=== PATIENT | male | born 1960 | race Caucasian/White ===

== ENCOUNTER 2018-10-04 12:37 | Inpatient (IN) | payer MEDICAID, OTHER ==
[~2018-10-04] VITALS: Ht 180.3 cm; Wt 66.8 kg
[2018-10-04 12:52] LABS: BASOPHILS % (AUTO) 0.3 % (0.0-2.0); EOSINOPHILS % (AUTO) 0.2 % (0.0-6.0); HEMATOCRIT 36 % (39-51); LYMPHOCYTES # (AUTO) 3.2 /CMM (0.8-4.8); LYMPHOCYTES % (AUTO) 34.2 % (20.0-44.0); MEAN CORPUSCULAR HGB CONC 33 g/dl (31.0-36.0); MEAN CORPUSCULAR VOLUME 88 fL (80-96); MONOCYTES # (AUTO) 1.5 /CMM (0.1-1.30); NEUTROPHILS # (AUTO) 4.6 /CMM (1.8-8.9); NEUTROPHILS % (AUTO) 49.3 % (43.0-81.0); PLATELET COUNT (AUTO) 95 /CMM (150-450); RED BLOOD CELL COUNT(AUTO) 4.11 MIL/uL (4.5-6.0); WHITE BLOOD COUNT (AUTO) 9.3 K/uL (4.3-11.0)
--- NOTE | 2018-10-04 12:52 | NUR ---
BIB [facility], FROM A HOTEL D/T ETOH, TAKES HEROIN, ALCOHOLIC, FOUND BEER BOTTLE ON SITE. STATES HE FELL OUT OF BED, BUT DOESN'T REMEMBER WHAT HAPPENED. PT IS AOX4, AMB, VSS, RR EVEN AND UNLABORED. HAS BRUISING ON HIS LEFT BIG TOE AND SECOND TOE R/T THE FALL. NO ACUTE DISTRESS NOTED, NO OTHER COMPLAINTS AT THIS TIME. READY FOR EVAL.
[2018-10-04 13:00] LABS: CALCIUM, SERUM 8.8 mg/dL (8.5-10.1); CREATININE 0.8 mg/dL (0.6-1.3); POTASSIUM 2.9 mmol/L (3.5-5.1)
[2018-10-04] MEDS ORDERED: IV NS 0.9% 1,000 ML BAG IV ONE (13:00)
[2018-10-04 13:07] LABS: ALBUMIN 2.9 g/dL (3.4-5.0); BILIRUBIN,DIRECT 0.5 mg/dL (0.0-0.2); TOTAL PROTEIN, SERUM 8.8 g/dL (6.4-8.2)
[2018-10-04 13:08] LABS: SALICYLATE 0.4 mg/dL (2.8-20.0)
--- NOTE | 2018-10-04 13:12 | NUR ---
PT BACK FROM CT. IVETTE WELL.
[2018-10-04 13:27] LABS: BAND % (MANUAL) 3 % (0.0-5.0); EOSINOPHILS % (MANUAL) 1 % (0-4); LYMPHOCYTES % (MANUAL) 34 % (16-48); MONOCYTES % (MANUAL) 10 % (0-11.0); NEUTROPHILS % (MANUAL) 52 (42-76)
[2018-10-04] MEDS ORDERED: POTASSIUM CL. PREMIX PERIPHER. 50 ML ONE ×2 (13:28→15:52)
[2018-10-04] MEDS: POTASSIUM CL. PREMIX PERIPHER. 50 ML IV SCH ×2 (13:35→14:30)
--- NOTE | 2018-10-04 14:27 | NUR ---
Patient is resting comfortably in bed with eyes closed. Easily aroused. VSS
--- NOTE | 2018-10-04 16:17 | NUR ---
Patient is resting comfortably in bed with eyes closed. Easily aroused. VSS. GAVE WATER AND EXTRA BLANKET FOR COMFORT.
--- NOTE | 2018-10-04 16:57 | NUR ---
Carolynn - Sister [phone]
--- NOTE | 2018-10-04 18:31 | NUR ---
Patient is resting comfortably in bed with eyes closed. Easily aroused. VSS
--- NOTE | 2018-10-04 18:39 | NUR ---
Called CHARAN Hernandezy and was given an hour eta.
--- NOTE | 2018-10-04 19:08 | NUR ---
PT GIVEN SANDWICH AND JUICE. OK PER MD
--- NOTE | 2018-10-04 19:43 | NUR ---
PINKDavid, PHOTOGRAPHER SCIENTIFIC AT BEDSIDE
--- NOTE | 2018-10-04 20:10 | NUR ---
PT REMOVED IV. SITE CLEANED AND BANDAGE APPLIED
--- NOTE | 2018-10-04 20:16 | NUR ---
PT WAS PENDING DISCHARGE, HOWEVER HIS CONDITION APPEARED TO DECLINE. DIFFICULTY BREATHING AND WALKING. MD NOTIFIED. PT WILL BE ADMITTED.
[2018-10-04] MEDS ORDERED: IPRATROPIUM NEB FS 0.5 MG/2.5 ML AMPUL.NEB NEB ONE (20:30)
[2018-10-04] MEDS ORDERED: ALBUTEROL FS 2.5 MG/3 ML VIAL.NEB NEB ONE (20:30)
[2018-10-04] MEDS ORDERED: IPRATROPIUM NEB FS 0.5 MG/2.5 ML AMPUL.NEB ONE (21:05)
[2018-10-04] MEDS ORDERED: ALBUTEROL FS 2.5 MG/3 ML VIAL.NEB ONE (21:05)
--- NOTE | 2018-10-04 21:11 | NUR ---
Pt is assigned to [facility] rm#: [id number], DX: COPD exacerbation, and accepting MD: Dr Royer Proctor.
[2018-10-04] MEDS ORDERED: Z GUARD REMEDY 2 OZ OINT TP PRN (22:00)
[2018-10-04] MEDS ORDERED: MAGNESIUM HYDROXIDE 30 ML UDC PO PRN (22:00)
[2018-10-04] MEDS ORDERED: IPRATROPIUM NEB FS 0.5 MG/2.5 ML AMPUL.NEB NEB PRN (22:00)
[2018-10-04] MEDS ORDERED: ZOLPIDEM TARTRATE 5 MG TABLET PO PRN (22:00)
[2018-10-04] MEDS ORDERED: ACETAMINOPHEN 325 MG TABLET PO PRN (22:00)
[2018-10-04] MEDS ORDERED: ALBUTEROL FS 2.5 MG/0.5 ML VIAL.NEB NEB PRN (22:00)
--- NOTE | 2018-10-04 22:00 | NUR ---
DIESEL ROLLER OPERATORLCAC OPERATOR NOTES PATIENT CAME TO UNIT VIA VAUGHN, ALERT, ORIENTED X 3. ON O2 AT 2LPM VIA NC. SOB ON EXERTION. PATIENT STATED HE FELL ON THE HOTEL ROOM BUT CAN'T REMEMBER THE DETAILS. PATIENT ADMITS TO SMOKING 1 PACK PER DAY, DRINKS VODKA ON A REGULAR BASIS AND USES HEROIN, WHICH HE LAST USED 2DAYS AGO. PATIENT IS FROM [place] AND HE LIVES ALONE. HE HAD A FLU SHOT 3 WEEKS AGO. ON TELE MONITOR- SINUS TACHY 110. SKIN ASSESSMENT DONE, PICTURES IN CHART. ORIENTED TO CALL SALMON, PLACED WITHIN EASY REACH. BED IN LOW, LOCKED POSITION. PADDING ON SIDE RAILS ON FOR SEIZURE PRECAUTIONS. WILL CONTINUE TO MONITOR ACCORDINGLY
--- NOTE | 2018-10-04 22:02 | NUR ---
REPORT GIVEN TO PAULINE GIL FOR [id number] TELE AND PT TRANSFERRED TO FLOOR
[2018-10-04] MEDS: IV D5/0.45 NACL 1,000 ML IV PRN (23:50)
[2018-10-04] MEDS: methylPREDNISolone SOD SUCC 40 MG/ML VIAL IV SCH (23:55)
--- NOTE | 2018-10-05 | NUR ---
RN NOTE PATIENT C/O GENERALIZED PAIN, 03/30. NORCO 5-325 GIVEN ORDERED
[2018-10-05] MEDS ORDERED: LORA-259 PO (00:37)
[2018-10-05] MEDS ORDERED: OMEP20TA20 PO (00:37)
[2018-10-05] MEDS ORDERED: ATEN50TA PO (00:37)
[2018-10-05 00:44] VITALS: BP 144/95
[2018-10-05] MEDS: LORAZEPAM INJ 2 MG/ML VIAL IV PRN ×2 (01:21→16:45)
--- NOTE | 2018-10-05 01:23 | NUR ---
RN NOTE PATIENT SEEN BY DR. CROCKETT, ORDERED ATIVAN 1MG IV Q4H PRN FOR ANXIETY AND AGITATION. ORDERS NOTED AND CARRIED OUT.
[2018-10-05] MEDS: ONDANSETRON HCL/PF 4 MG/2 ML VIAL IVP PRN ×2 (03:15→23:06)
[2018-10-05 04:00] VITALS: BP 144/76
[2018-10-05 06:36] LABS: THYROID STIMULATING HORMONE 0.554 uIU/mL (0.358-3.74)
[2018-10-05 06:37] LABS: BASOPHILS % (AUTO) 0.1 % (0.0-2.0); HEMATOCRIT 31 % (39-51); HEMOGLOBIN 10.1 g/dL (13.5-17.5); LYMPHOCYTES # (AUTO) 0.4 /CMM (0.8-4.8); LYMPHOCYTES % (AUTO) 6.5 % (20.0-44.0); MEAN CORPUSCULAR HGB CONC 33 g/dl (31.0-36.0); MEAN CORPUSCULAR VOLUME 88 fL (80-96); MONOCYTES # (AUTO) 0.4 /CMM (0.1-1.30); MONOCYTES % (AUTO) 5.5 % (2.0-12.0); NEUTROPHILS # (AUTO) 5.7 /CMM (1.8-8.9); NEUTROPHILS % (AUTO) 87.9 % (43.0-81.0); PLATELET COUNT (AUTO) 72 /CMM (150-450); RED BLOOD CELL COUNT(AUTO) 3.49 MIL/uL (4.5-6.0); WHITE BLOOD COUNT (AUTO) 6.5 K/uL (4.3-11.0)
[2018-10-05 06:43] LABS: CREATININE 0.6 mg/dL (0.6-1.3); PHOSPHORUS 2.8 mg/dL (2.5-4.9); POTASSIUM 3.4 mmol/L (3.5-5.1)
[2018-10-05 06:53] LABS: CALCIUM, SERUM 8.1 mg/dL (8.5-10.1)
--- NOTE | 2018-10-05 06:56 | NUR ---
HAND MITER OPERATOR CLOSING NOTES PATIENT RESTING IN BED, ALERT AND ORIENTED X 3. BREATHING EVEN AND UNLABORED. NO COMPLAINTS OF PAIN OR DISCOMFORT OF THIS TIME. ON O2 VIA NC AT 2LPM. PERIPHERAL IV ON RIGHT HAND INFUSING AT 100ML/HR . TELE MONITOR IN PLACE, SINUS RHYTHM-TACHY 93-103 WITH PVCs, WITH BIGEMINY. DVT PUMP ON IN PLACE. ALL NEEDS ATTENDED TO. ALL DUE MEDICATIONS GIVEN ORDERED. CALL SALMON WITHIN REACH. BED IN LOW, LOCKED POSITION. WILL ENDORSE NEAL TO ONCOMING RN.
--- NOTE | 2018-10-05 07:01 | NUR ---
RN NOTE LAB CALLED FOR CRITICAL VALUE OF MAGNESIUM- 1.0. PAGED DR. HAN A/W FOR CALL BACK
[2018-10-05 07:08] LABS: BAND % (MANUAL) 1 % (0.0-5.0); LYMPHOCYTES % (MANUAL) 16 % (16-48); MONOCYTES % (MANUAL) 3 % (0-11.0); NEUTROPHILS % (MANUAL) 80 (42-76)
--- NOTE | 2018-10-05 07:29 | NUR ---
RN NOTES NO CALL BACK FROM DR. CROCKETT. CRITICAL VALUE OF MAGNESIUM 1.0 ENDORSED TO MORNING NURSE.
--- NOTE | 2018-10-05 08:00 | NUR ---
tele care aide: initial assessment received pt in bed awake, a/ox3. no seizure noted at this time. continue on ivf, infusing well. instructed to call for assistance. will continue to monitor.
[2018-10-05] MEDS: FOLIC ACID 1 MG TABLET PO SCH (08:35)
[2018-10-05] MEDS: THIAMINE HCL 100 MG TABLET PO SCH (08:35)
[2018-10-05] MEDS: HYDROCODONE/APAP 5/325MG 1 EACH TABLET PO PRN ×3 (08:37→21:38)
[2018-10-05] MEDS: methylPREDNISolone SOD SUCC 40 MG/ML VIAL IV SCH ×3 (08:54→23:22)
[2018-10-05] MEDS: IV D5/0.45 NACL 1,000 ML IV PRN (08:58)
[2018-10-05] MEDS ORDERED: POTASSIUM CHLORIDE 20 MEQ TAB.PRT.SR PO ONE (09:30)
--- NOTE | 2018-10-05 09:30 | NUR ---
m/s volunteer recruiter: nephro consult seen by dr. munguia with orders. orders acknowledged. pt made aware.
[2018-10-05] MEDS: Magnesium 1GM/D5W 100ML PREMIX 100 ML IV SCH ×4 (09:39→12:40)
--- NOTE | 2018-10-05 10:47 | NUR ---
Social service consult requested by Dr. Linton for ETOH and heroin abuse and possible homeless. Pt. is a 58 year old male who was admitted to [facility] for COPD exacerbation. SW met with pt. bedside. Pt. is alert and oriented x 4. Pt. has tattoos on his chest and arms. Pt. appears disheveled. Pt. states he lives on a boat in [facility]. Pt. is visiting his sister Carolynn [place] in [place] and came to pickle pumper a truck. Pt's sister Carolynn Santos is his emergency contact . Pt. states he drinks a pint of vodka per day and has drank most of his life. Pt. is also a heroin user and last used 4 or 5 days ago. Pt. also states he has used heroin most of his life. SW offered pt. alcohol treatment program referrals, however, pt. declined. Pt. denies any psychiatric history or diagnosis. Pt. does not have an Advance Directive at this time. Pt. would like to be discharged back to his sister Carolynn once medically cleared. Pt. states his sister Carolynn will pick him up upon discharge. No other social service needs are requested at this time. SW is available, if needed. MEGAN updated continuous pillowcase cutter Romi Joyner regarding pt's discharge plan and pt. not being homeless.
--- NOTE | 2018-10-05 11:20 | NUR ---
WOUND CARE CONSULT: PT PRESENTS WITH MULTIPLE BRUISES AND DRY ABRASIONS WITH ABRASION TO SACRAL AREA, PRESENT ON ADMISSION. LEFT GREAT TOE AND 2ND TOE VERY BRUISED. RECOMMENDATIONS MADE FOR WOUND CARE AND SKIN PROTECTION. DISCUSSED WITH NURSING STAFF. DEFER TO Jhonatan Wilson FOR LEFT FOOT. WILL SEE PRN. LOPEZ IN AGREEMENT WITH PLAN OF CARE. PT ON [facility] LOW AIRLOSS BED. Addendum: 10/05/18 at 1121 by BAYLEE FELIX WNDNU Amended: Links added.
--- NOTE | 2018-10-05 11:30 | NUR ---
m/s dredge pump operator: md visit [facility] and [facility] with verbal orders to do stat pelvic x-ray and stat left foot complete x-ray to r/o fx. orders read back and carried out and acknowledged.
--- NOTE | 2018-10-05 11:55 | NUR ---
m/s sewing machine adjuster: notes respiratory culture to left nares collected due to <Left sinusitis on CT; reports snorting heroin left nares per md and sent to lab, spoke to waqas.
[2018-10-05] MEDS: LEVOFLOXACIN (750 MG) 750 MG TABLET PO SCH (12:36)
--- NOTE | 2018-10-05 13:00 | NUR ---
m/s gear and spline grinder: ortho consult seen and examined by adia anton (p.a.). adia spoke to dallas re: 5th metatarsal fx and plan of care. pt aware. pt in Non-weight bearing to lle, pt verbalized understanding. instructed to call for assistance. will continue to monitor.
--- NOTE | 2018-10-05 13:47 | NUR ---
m/s magnetic observer: notes pt refused p.t. eval, stated, "no, i don't feel good." instructed to call for assistance.
[2018-10-05 16:00] VITALS: BP 144/96
[2018-10-05] MEDS: BACITRACIN/POLYMYXIN B 15 GM TUBE TP SCH (16:03)
--- NOTE | 2018-10-05 16:45 | NUR ---
m/s market development executive: notes noted with shakiness, ativan 1mg ivp given by rn. instructed to call for assistance.
--- NOTE | 2018-10-05 18:11 | NUR ---
offal worker visited and interviewed patient, states lives on a boat in [facility]. He is visiting his sister Carolynn Santos in [place] and came to warp picker a truck. Patient's sister Carolynn Santos is his emergency contact . He states he drinks a pint of vodka per day and has drank most of his life. Patient is also a heroin user and last used 4 or 5 days ago. Patient also states he has used heroin most of his life. offal worker offered alcohol treatment program referrals, however, he declined. He denies any psychiatric history or diagnosis. Patient does not have an Advance Directive at this time. Pt. would like to be discharged back to his sister Carolynn once medically cleared. He states his sister Carolynn will pick him up upon discharge. Addendum: 10/05/18 at 1813 by LUKE SUAREZ RN Amended: Links added.
--- NOTE | 2018-10-05 19:00 | NUR ---
m/s solutions sales consultant: notes bedside report given to johnson (rn) for continuity of care.
--- NOTE | 2018-10-05 19:05 | NUR ---
RN INITIAL NOTES PATIENT RECEIVED IN BED, WATCHING TV, ALERT, ORIENTED X3. BREATHING EVEN AND UNLABORED. NOT IN ANY DISTRESS. NO COMPLAINTS OF THIS TIME. PERIPHERAL IV ON RIGHT HAND G#20 INFUSING AT 100ML/HR. CALL SALMON WITHIN REACH. BED IN LOW, LOCKED POSITION. WILL CONTINUE TO MONITOR ACCORDINGLY
[2018-10-05 20:00] VITALS: BP 160/92
--- NOTE | 2018-10-05 21:39 | NUR ---
RN NOTE PATIENT C/O GENERALIZED PAIN, 03/30. NORCO 5-325 GIVEN ORDERED
[2018-10-05] MEDS: MAG HYDROX/AL HYDROX/SIMETH 30 ML UDC PO PRN (21:41)
--- NOTE | 2018-10-05 21:45 | NUR ---
RN NOTE PATIENT C/O HEARTBURN, MAALOX SUSP GIVEN ORDERED. URINE SAMPLE COLLECTED FOR U/A.
[2018-10-05 22:41] LABS: APPEARANCE,URINE CLEAR (CLEAR); BILIRUBIN,URINE NEGATIVE (NEGATIVE); BLOOD, URINE 2+ Ery/uL (NEGATIVE); COLOR,URINE DARK YELLO (YELLOW); KETONES,URINE NEGATIVE (NEGATIVE); LEUKOCYTE ESTERASE ,URINE NEGATIVE (NEGATIVE); NITRITE, URINE NEGATIVE (NEGATIVE); PROTEIN,URINE NEGATIVE (NEGATIVE); UGLUCOSE NEGATIVE (NEGATIVE)
[2018-10-05 22:46] LABS: BACTERIA,URINE Few /HPF (None Seen); RBC,URINE 51-80 /HPF (0-2); SQUAMOUS EPITHELIAL CELL,UR Rare /HPF (None Seen); WBC,URINE 0-2 /HPF (0-3)
[2018-10-05 22:50] LABS: OSMOLALITY,URINE 599 mOS/kg (340-1090)
--- NOTE | 2018-10-05 23:15 | NUR ---
RN NOTE PATIENT C/O NAUSEA AND VOMITING X1- COFFEE COLORED VOMITUS, ABOUT 100ML. ZOFRAN GIVEN ORDERED. CHARGE NURSE MADE AWARE. WILL MONITOR CLOSELY
[2018-10-05 23:30] LABS: URINE SODIUM, RANDOM 142 mmol/l (40-220)
[2018-10-05 23:41] VITALS: BP 152/88
[2018-10-06] MEDS: LORAZEPAM INJ 2 MG/ML VIAL IV PRN (00:45)
--- NOTE | 2018-10-06 00:45 | NUR ---
RN MS NOTES PATIENT COMPLAINT OF FEELING ANXIOUS AND ANXIETY REQUESTING FOR ATIVAN PRN ATIVAN 0.5ML GIVEN ORDERED. REST WASTED WITH ANOTHER RN. Addendum: 10/06/18 at 0049 by VIDHI DAVID RN 0.5ML WASTED WITH ANOTHER RN
[2018-10-06] MEDS: ONDANSETRON HCL/PF 4 MG/2 ML VIAL IVP PRN (05:42)
--- NOTE | 2018-10-06 05:45 | NUR ---
RN NOTES PATIENT COMPLAINING OF NAUSEA AND VOMITING X 1. ZOFRAN GIVEN ORDERED. WILL MONITOR CLOSELY
[2018-10-06 06:40] LABS: HEMATOCRIT 31 % (39-51); HEMOGLOBIN 10.2 g/dL (13.5-17.5); LYMPHOCYTES # (AUTO) 0.7 /CMM (0.8-4.8); LYMPHOCYTES % (AUTO) 5.1 % (20.0-44.0); MEAN CORPUSCULAR HGB CONC 33 g/dl (31.0-36.0); MEAN CORPUSCULAR VOLUME 89 fL (80-96); MONOCYTES # (AUTO) 1.1 /CMM (0.1-1.30); NEUTROPHILS # (AUTO) 11.5 /CMM (1.8-8.9); NEUTROPHILS % (AUTO) 86.9 % (43.0-81.0); PLATELET COUNT (AUTO) 85 /CMM (150-450); WHITE BLOOD COUNT (AUTO) 13.3 K/uL (4.3-11.0)
--- NOTE | 2018-10-06 06:40 | NUR ---
MS RN CLOSING NOTES PATIENT RESTING IN BED, WATCHING TV, ALERT AND ORIENTED X 3. BREATHING EVEN AND UNLABORED. NO COMPLAINTS OF PAIN OF THIS TIME. IV SITE ON RIGHT HAND INTACT AND PATENT, S/L. ALL NEEDS ATTENDED TO. ALL DUE MEDICATIONS GIVEN ORDERED. CALL SALMON WITHIN REACH. BED IN LOW, LOCKED POSITION. WILL ENDORSE NEAL TO ONCOMING RN.
[2018-10-06 06:55] LABS: URIC ACID 2.6 mg/dL (2.6-7.2)
[2018-10-06 07:21] LABS: CALCIUM, SERUM 8.3 mg/dL (8.5-10.1); CREATININE 0.5 mg/dL (0.6-1.3); MAGNESIUM 1.5 mg/dL (1.8-2.4); POTASSIUM 3.7 mmol/L (3.5-5.1)
[2018-10-06 07:38] LABS: BAND % (MANUAL) 2 % (0.0-5.0); LYMPHOCYTES % (MANUAL) 5 % (16-48); MONOCYTES % (MANUAL) 2 % (0-11.0); NEUTROPHILS % (MANUAL) 91 (42-76)
[2018-10-06 08:00] VITALS: BP 137/88
[2018-10-06] MEDS: methylPREDNISolone SOD SUCC 40 MG/ML VIAL IV SCH ×2 (09:41→16:47)
[2018-10-06] MEDS: LEVOFLOXACIN (750 MG) 750 MG TABLET PO SCH (09:42)
[2018-10-06] MEDS: THIAMINE HCL 100 MG TABLET PO SCH (09:42)
[2018-10-06] MEDS: FOLIC ACID 1 MG TABLET PO SCH (09:42)
[2018-10-06] MEDS: BACITRACIN/POLYMYXIN B 15 GM TUBE TP SCH (09:45)
[2018-10-06] MEDS: HYDROCODONE/APAP 5/325MG 1 EACH TABLET PO PRN (10:07)
[2018-10-06] MEDS: Magnesium 1GM/D5W 100ML PREMIX 100 ML IV SCH ×2 (10:54→12:21)
[2018-10-06] MEDS ORDERED: K PHOS NEUTRAL 250 MG TABLET PO ONE (12:00)
[2018-10-06 16:00] VITALS: BP 122/72
--- NOTE | 2018-10-06 16:00 | NUR ---
phosphorous and mg levels low-replacements given.pt. as well on fluid restriction as na level low.dr. weaver in to see pt.
--- NOTE | 2018-10-06 16:04 | NUR ---
notified by lab that pt. positive for mrsa nares-learning specialist aware and put in isolation.bactroban ordered.
[2018-10-06] MEDS: MUPIROCIN OINT 2% 22 GM TUBE SCH ×2 (16:49→21:38)
--- NOTE | 2018-10-06 17:46 | NUR ---
pt's sister in to visit.
--- NOTE | 2018-10-06 17:47 | NUR ---
pt. denies nausea thus far today.
--- NOTE | 2018-10-06 19:35 | NUR ---
MS RN NOTES RECEIVED PATIENT IN BED, WATCHING TV, ALERT, ORIENTED X3. BREATHING EVEN AND UNLABORED. NOT IN ANY DISTRESS. NO COMPLAINTS OF DISCOMFORT OF THIS TIME. PERIPHERAL IV ON RIGHT HAND G#20 INTACT AND PATENT. PATIENT ON FLUID RESTRICTION OF 900 ML / 24 HOUR, INFORMED PATIENT, CALL SALMON WITHIN REACH. BED IN LOW, LOCKED POSITION. WILL CONTINUE TO MONITOR ACCORDINGLY
[2018-10-06 20:00] VITALS: BP 122/75
--- NOTE | 2018-10-06 22:10 | NUR ---
RN NOTES PATIENT SISTER CALLED AND ASKED FOR AN UPDATE REGARDING PATIENTS' CONDITION.
[2018-10-07] MEDS: methylPREDNISolone SOD SUCC 40 MG/ML VIAL IV SCH ×2 (00:09→08:30)
[2018-10-07] MEDS: HYDROCODONE/APAP 5/325MG 1 EACH TABLET PO PRN ×2 (00:34→08:30)
--- NOTE | 2018-10-07 00:34 | NUR ---
RN NOTES NORCO GIVEN FOR C/O 6/10 LOWER EXTREMITY PAIN.
--- NOTE | 2018-10-07 06:55 | NUR ---
MS RN NOTES PATIENT IN BED, WATCHING TV, ALERT, ORIENTED X3. BREATHING EVEN AND UNLABORED. NOT IN ANY DISTRESS. NO COMPLAINTS OF DISCOMFORT OF THIS TIME. PERIPHERAL IV ON RIGHT HAND G#20 INTACT AND PATENT. PATIENT ON FLUID RESTRICTION OF 900 ML / 24 HOUR, INFORMED PATIENT, CALL SALMON WITHIN REACH. BED IN LOW, LOCKED POSITION. WILL ENDORSE TO AM NURSE FOR CONTINUITY OF CARE.
--- NOTE | 2018-10-07 07:39 | NUR ---
MS RN OPENING NOTES RECEIVED PT LAYING IN BED WITH HOB ELEVATED. PT IS A/O X4, AFEBRILE. RESPIRATIONS ARE EVEN AND UNLABORED, NOT IN ANY ACUTE DISTRESS NOTED. PT C/O PAIN TO LEFT FOOT AND BACK. NO C/O SOB, N/V. PUPILS ARE REACTIVE TO LIGHT, BILATERAL HAND ELECTRIC ORGAN INSPECTOR AND REPAIRER ARE STRONG AND EQUAL. IV SITE TO RIGHT HAND INTACT, NO INFILTRATION NOTED. DRESSING KEPT CLEAN AND DRY. SAFETY MEASURES ARE IN PLACE. INSTRUCTED PT TO USE CALL LIGHT WHEN ASSISTANCE IS NEEDED, CALL LIGHT IS LEFT WITHIN REACH. WILL CONTINUE TO MONITOR THROUGHOUT SHIFT FOR CONTINUITY OF CARE.
[2018-10-07 07:44] LABS: CALCIUM, SERUM 8.1 mg/dL (8.5-10.1); CREATININE 0.7 mg/dL (0.6-1.3); MAGNESIUM 1.6 mg/dL (1.8-2.4); POTASSIUM 3.6 mmol/L (3.5-5.1)
[2018-10-07 08:00] VITALS: BP_SYST 145; BP_DIAS 54; BP_DIAS 91
--- NOTE | 2018-10-07 08:00 | NUR ---
MS RN NOTES-- BOOT APPLIED TO LEFT FOOT, PT ABLE TO TOLERATE. SIZE IS APPROPRIATE.
[2018-10-07] MEDS: FOLIC ACID 1 MG TABLET PO SCH (08:30)
[2018-10-07] MEDS: THIAMINE HCL 100 MG TABLET PO SCH (08:30)
[2018-10-07] MEDS: MAG HYDROX/AL HYDROX/SIMETH 30 ML UDC PO PRN (08:38)
[2018-10-07] MEDS: BACITRACIN/POLYMYXIN B 15 GM TUBE TP SCH (08:39)
[2018-10-07] MEDS: MUPIROCIN OINT 2% 22 GM TUBE SCH (08:40)
[2018-10-07] MEDS: LEVOFLOXACIN (750 MG) 750 MG TABLET PO SCH (11:17)
[2018-10-07] MEDS: Magnesium 1GM/D5W 100ML PREMIX 100 ML IV SCH ×2 (11:25→12:35)
--- NOTE | 2018-10-07 13:30 | NUR ---
MS RN NOTES-- EXPLAINED DISCHARGE PAPERWORK TO PT WITH VERBAL AND WRITTEN UNDERSTANDING. PICTURES TAKEN OF SKIN AND PLACED IN CHART. ALL BELONGINGS ACCOUNTED FOR AND READY IN A BAG TO TAKE HOME.
--- NOTE | 2018-10-07 14:57 | NUR ---
MS CROWNING HAMMER OPERATOR NOTE PT DISCHARGE TO HOME IN STABLE CONDITION WITH SISTER YUKI VIA PERSONAL VEHICLE. PT IS A/O X4, AFEBRILE. RESPIRATIONS ARE EVEN AND UNLABORED, NOT IN ANY ACUTE DISTRESS NOTED. PT DENIES ANY PAIN AT THIS TIME. NO C/O SOB, N/V. PICTURES TAKEN OF SKIN AND PLACED IN CHART. IV SITE REMOVED, APPLIED PRESSURE AND TOLERATED WELL. ID BANDS REMOVED. ALL BELONGINGS, DISCHARGE PAPERWORK INCLUDING SCRIPT HAS BEEN HANDED TO PT. PT ACCOMPANIED BY RN AND PT FOR SAFETY TRANSFER TO VEHICLE. PT LEFT IN STABLE CONDITION.
== END 2018-10-07 14:45 | disposition home or self-care (01) | DRG 773 ==
LOC: ER 12:41 → TELE 21:16 → MED 10-05 08:50
PROVIDERS: ATTEND Hospitalist
DX: F10.129 Alcohol abuse with intoxication, unspecified (principal); F11.10 Opioid abuse, uncomplicated; D61.818 Other pancytopenia; D69.59 Other secondary thrombocytopenia; E22.2 Syndrome of inappropriate secretion of antidiuretic hormone; E44.1 Mild protein-calorie malnutrition; E83.42 Hypomagnesemia; E87.70 Fluid overload, unspecified; J44.1 Chronic obstructive pulmonary disease with (acute) exacerbation; K74.60 Unspecified cirrhosis of liver; Y90.8 Blood alcohol level of 240 mg/100 ml or more; E87.6 Hypokalemia; S92.352A Displaced fracture of fifth metatarsal bone, left foot, initial encounter for closed fracture; X58.XXXA Exposure to other specified factors, initial encounter; Y92.9 Unspecified place or not applicable; G89.29 Other chronic pain; J01.90 Acute sinusitis, unspecified; B19.20 Unspecified viral hepatitis C without hepatic coma; S30.0XXA Contusion of lower back and pelvis, initial encounter; S80.212A Abrasion, left knee, initial encounter; S80.211A Abrasion, right knee, initial encounter; S90.112A Contusion of left great toe without damage to nail, initial encounter; Z68.20 Body mass index [BMI] 20.0-20.9, adult
CPT/HCPCS: 36415; 70450-TC; 71045-TC; 72170-TC; 73630-TC; 80048-TC; 80061-TC; 80076-TC; 80305; 81000-TC; 82962-TC; 83735-TC; 83935-TC; 84100-TC; 84300-TC; 84443-TC; 84550-TC; 85025-TC; 87070; 87081-TC; 87186-TC; 97110-TC; 97116-TC; 97530-TC; G0378; G0480; J2060; J2405; J2920; J3475; J3480; J3490; J7030; J7050